=== PATIENT | female | born 1985 | race Two or more races ===

== ENCOUNTER 2025-03-18 00:54 | Emergency (ER) | payer MEDICAID, SELFPAY ==
[2025-03-18 00:55] VITALS: BMI 31.8
[2025-03-18 00:56] VITALS: BP 134/79; PULSE 79; RESP 18; TEMP 36.6; O2SAT 97
--- NOTE | 2025-03-18 01:12 | PD.EDABDPN ---
ED Abdominal Pain RME/HPI General Chief Complaint: Abdominal Pain Stated complaint: ABD PAIN, SOB Time seen by provider: 03/18/25 01:09 Arrival date/time: 03/18/25 00:54 40F with no significant PMH presents to ED with several months of intermittent burning/sharp epigastric pain and N/V. Patient has been taking TUMs and MoM w/ only minimal relief. Tonight was worse than usual, though patient is feeling better compared to initial onset. Patient also has some SOB associated with it and wants XR. Limitations: no limitations Related Data Home Medications ?Medication ?Instructions ?Recorded ?Confirmed vit no.95-ferrous 1 tab PO QDAY 06/18/18 06/19/18 fumarate 28 mg-folic acid 800 mcg tablet () Previous Rx's ?Medication ?Instructions ?Recorded ibuprofen 600 mg tablet 600 mg PO QID PRN pain #20 tabs 10/22/23 tramadol 50 mg tablet 50 mg PO Q6H PRN pain #20 tabs 10/22/23 Allergies Allergy/AdvReac Type Severity Reaction Status Date / Time No Known Allergies Allergy Verified 03/18/25 00:57 Review of Systems Review of Systems Systems Reviewed: All systems reviewed, normal except as documented Constitutional Constitutional: Reports system reviewed and no additional complaints, except as documented, Denies fever(s) and Denies headache(s) ENT Ears, Nose, Mouth, and Throat: Denies disequilibrium and Denies headache(s) Cardiovascular Cardiovascular: Reports system reviewed and no additional complaints, except as documented, Denies chest pain and Denies dyspnea Respiratory Respiratory: Reports system reviewed and no additional complaints, except as documented, Denies cough and Denies dyspnea Gastrointestinal Gastrointestinal: Reports system reviewed and no additional complaints, except as documented, Reports as per HPI, Reports abdominal pain, Reports nausea and Reports vomiting Neurologic Neurologic: Reports system reviewed and no additional complaints, except as documented, Denies confusion, Denies disequilibrium and Denies headache(s) Psychiatric Psychiatric: Denies confusion Past Medical History Past Medical History NEUROLOGIC: Negative Neurological Disorders CARDIAC: Negative Cardiac Disorders or Congestive Heart Failure RESPIRATORY: Negative Chronic Obstructive Pulmonary Disease (COPD) GASTROINTESTINAL: Negative Gastrointestinal Disorders GENITOURINARY: Positive Genitourinary Disorders (Kidney infection hospitalized for 4 days); Negative Renal Disease REPRODUCTIVE: Positive Previous Pregnancies (x5) MUSCULOSKELETAL: Negative Musculoskeletal Disorders ENDOCRINE: Negative Endocrine Disorders, Diabetes Mellitus Type 1 or Diabetes Mellitus Type 2 HEMATOLOGIC: Negative Blood Disorders OTHER HISTORY: Positive Hospitalization (5 vaginal deliveries) and Chicken Pox (as child); Negative Autoimmune Disease Family History FAMILY HISTORY: Positive Family Respiratory Disorders (mother-asthma), Family Cardiac Disorders (mother-HTN) and Family Cancer (mother-breast cancer); Negative Family Psychiatric Problems, Family Gastrointestinal Problems, Family Surgery or Family Anesthesia Reaction Surgical History SURGICAL: Negative Section Social History SMOKING STATUS: Never smoker SECOND HAND EXPOSURE: No ED Exam General Limitations: Present no limitations General appearance: Present alert and in no apparent distress Head Head exam: Present atraumatic Eye Eye exam: Present normal appearance, PERRL and EOMI ENT ENT exam: Present normal exam, normal oropharynx and mucous membranes moist Neck Neck exam: Present normal inspection, full ROM and trachea midline Chest Chest inspection: Present normal inspection and symmetric chest wall rise Respiratory Respiratory exam: Present normal lung sounds bilaterally Cardiovascular Cardiovascular exam: Present regular rate, normal rhythm and normal heart sounds Abdominal Exam Abdominal exam: Present soft and normal bowel sounds Abdominal tenderness: Present epigastrium and mild Extremities Exam Extremities exam: Present normal inspection and full ROM Back Exam Back exam: Present normal inspection and full ROM Neurological Exam Neurological exam: Present alert, oriented X3 and CN II-XII intact Psychiatric Psychiatric exam: Present normal affect and normal mood Skin Skin exam: Present warm, dry, intact and normal color Course Quality Measures none Orders Category Date Time Status XR chest 1V portable Stat Exams 03/18/25 01:44 Taken Famotidine [Pepcid] Med 03/18/25 01:09 Discontinued 40 mg PO X1 ONE Ondansetron Odt [Zofran Odt] Med 03/18/25 01:09 Discontinued 4 mg PO X1 ONE mg Hyd/Al Hyd/Carmen Susp [Maalox Susp] Med 03/18/25 01:09 Discontinued 30 ml PO X1 ONE Vital Signs Vital signs: Vital Signs Temperature 98 F 03/18/25 00:56 Pulse Rate 79 03/18/25 00:56 Respiratory Rate 18 03/18/25 00:56 Blood Pressure 134/79 H 03/18/25 00:56 Pulse Oximetry (%) 97 03/18/25 00:56 Oxygen Delivery Method Room Air 03/18/25 00:56 O2 at 97% on RA and WNLs Abdominal Pain MDM MDM Narrative MDM Narrative:: 40F with no significant PMH presents to ED with several months of intermittent burning/sharp epigastric pain and N/V. Patient has been taking TUMs and MoM w/ only minimal relief. Tonight was worse than usual, though patient is feeling better compared to initial onset. Patient also has some SOB associated with it and wants XR. Physical exam reveals mild epigastric tenderness. Normal WOB. Patient is afebrile, calm, and alert. GI cocktail improved symptoms. Telerad CXR read unremarkable. [employer] given. Patient data External records reviewed:: [facility] previous records Clinical information provided by:: patient Social determinants that could affect healthcare access:: none Patient has the following chronic illnesses:: none How is presenting disease/condition affected by chronic disease/condition?: no chronic disease Evaluation data The following diagnostics were reviewed and interpreted by me:: other (specify) (none) Lab and/or radiology exams considered but not ordered:: not ordered Interpretation Summary: n/a Medications / Prescriptions Medications or Prescriptions considered but not ordered:: ordered Medication administrations:: Medication Administration History Discontinued Medications Al Hydrox/Mg Hydrox/Simethicone (Mg Hyd/Al Hyd/Carmen (Maalox Reg) Susp 30 Ml Udc) 30 ml PO X1 ONE Stop: 03/18/25 01:10 Last Admin: 03/18/25 01:22 Dose: 30 ml Documented By: ALISA Famotidine (Famotidine 20 Mg Tablet) 40 mg PO X1 ONE Stop: 03/18/25 01:10 Last Admin: 03/18/25 01:22 Dose: 40 mg Documented By: ALISA Ondansetron HCl (Ondansetron Odt 4 Mg Tabrap) 4 mg PO X1 ONE; Protocol Stop: 03/18/25 01:10 Last Admin: 03/18/25 01:22 Dose: 4 mg Documented By: ALISA above Consultations Consultation(s) initiated? (list below): No Diagnosis Differential diagnosis abdominal pain: abdominal pain, acute appendicitis, calculus of kidney, constipation, diverticulitis, endometriosis, gastroenteritis, pancreatitis, small bowel obstruction and other (gastritis, GERD) Most likely diagnosis given after review of the tests above:: gastritis Admission Indicated Admission indicated?: not indicated Admission Request Was there a request for admission?: No Disposition Plan Disposition Plan: Discharge Discharge Attestation Discharge Attestation: The patient and all family members were given an opportunity to ask questions and understood the discharge instructions. Discharge instructions specifically effects, indications for sooner follow up or return to the emergency department, and the expected course of current diagnosis. Patient condition: Stable Discharge Plan Plan Patient Disposition: HOME (Self Care) Discharge Disposition comment: Stable Prescriptions/Referrals Prescriptions/Med Rec: No Action PNV no.95-ferrous fumarate-FA [] 28 mg iron- 800 mcg Tablet 1 tab PO QDAY tramadol 50 mg tablet 50 mg PO Q6H PRN (Reason: pain) Qty: 20 0RF ibuprofen 600 mg tablet 600 mg PO QID PRN (Reason: pain) Qty: 20 0RF Referrals: Cely Harding PA-C [Primary Care Provider] - In 1 week Problem List Clinical Impression: Gastritis Patient/Caregiver Discharge Instructions Education Materials: ED Gastritis (Adult) Additional Instructions: Please follow-up with PCP within 24-48 hours and return immediately if symptoms worsen. Can try Pepcid and/or see PCP for additional evaluation including possible referral to GI. Print Language: Moroccan Stand Alone Forms: Work/School Release, Patient Portal Info Letter JANETTE/LIANNA Supervising Physician LEIDA Supervising Physician: Dr. Diaz
[2025-03-18] MEDS: MG HYD/AL HYD/SIME (Maalox Reg) SUSP 30 ML UDC PO (01:22)
[2025-03-18] MEDS: FAMOTIDINE 20 MG TABLET 40 MG PO (01:22)
[2025-03-18] MEDS: ONDANSETRON ODT 4 MG TABRAP PO (01:22)
--- NOTE | 2025-03-18 01:44 | XR_ITS ---
Examination: PA chest single view TECHNIQUE: Upright PA chest single view Date and time: March 18, 2025, 0148 hours INDICATIONS: Epigastric pain nausea vomiting with shortness of breath tonight FINDINGS: Normal heart size The lungs are clear. The osseous structures are intact Impression : No active disease
--- NOTE | 2025-03-18 02:32 | PRELIM_ITS ---
Radiograph of the chest (single PA Upright view). March 18, 2025 0147 hours Clinical history: Shortness of breath No prior study is available for comparison. Findings: The heart, mediastinum and pulmonary jorge are unremarkable. The lungs are clear. There is no pleural effusion. The bony thorax is unremarkable. Impression: No acute cardiopulmonary process. Report Electronically Signed By: Aniket Wang 03/18/2025 2:32:19 AM [EST]
== END 2025-03-18 03:36 | disposition home or self-care (01) ==
PROVIDERS: Emergency Provider Emergency Medicine; PCP Physician Assistant
DX: K29.70 Gastritis, unspecified, without bleeding (principal); R06.02 Shortness of breath
CPT/HCPCS: 71045; 99283; Q0162; A9270

== ENCOUNTER 2025-04-16 08:10 | Emergency (ER) | payer MEDICAID, SELFPAY ==
[2025-04-16] VITALS (7 sets, daily range): BP systolic 111–161; BP diastolic 52–92; PULSE 54–87; RESP 17–18; TEMP 36.6–36.9; O2SAT 98–100; BMI 32.8
--- NOTE | 2025-04-16 | XR_ITS ---
MRI abdomen, without contrast. MRCP Date and time of exam: April 16, 2025, 1447 hrs. Indications: Abdominal pain today, gallbladder sonogram today 3 mm stone in the common bile duct Technique: .5T MRI scanner. Images obtained included T1 weighted transverse images, T2-weighted transverse images, T2-weighted transverse images fat-suppressed, T2 weighted haste fat suppressed transverse images, T1 weighted images, in and out of phase images, T2-weighted coronal images, breath hold, T2 weighted haze coronal images as well as T2 weighted coronal thick slab images, MRCP. Findings: No focal liver or splenic lesion No intrahepatic biliary tract dilatation Gallstones, no definite gallbladder wall thickening 2 mm filling defect in the common bile duct axial image 20 and system with common bile duct stone Negative for pancreatitis Spleen not enlarged No ascites Impression: 2 mm stone in the common bile duct, consider ERCP follow-up
--- NOTE | 2025-04-16 08:36 | XR_ITS ---
Examination: CT abdomen and pelvis without contrast. Coronal 3-D reconstructions. Sagittal 2-D reconstructions. Date and time of exam:April 16, 2025, 0924 hours INDICATIONS: Abdominal pain epigastric pain nausea vomiting beginning today. CTDI: vol (mGy): 12.1 DLP: (mGycm): 712 Technique: Axial images of the abdomen have been obtained, 3 mm slice thickness Intravenous contrast material has not been administered. Low dose protocols were performed. One or more of the following dose reduction techniques were used; automated exposure control, adjustment of the mA and/or KV according to patient size, use of iterative reconstruction technique. Findings: No focal liver or splenic lesions Cholelithiasis No pancreatic or adrenal mass Bilateral 1 to 3 mm renal calculi, no hydronephrosis or ureteral calculi Aorta normal size. Normal appendix. No bowel obstruction. No diverticulitis Anteverted uterus Contracted urinary bladder Osseous structures intact IMPRESSION: Cholelithiasis, negative for cholecystitis Nonobstructing bilateral renal calculi, no hydronephrosis or ureteral calculi Normal appendix No bladder mass or bladder calculi
--- NOTE | 2025-04-16 08:36 | XR_ITS ---
Examination: Abdomen sonogram, Limited Date and time of exam: April 16, 2025, 0945 hours INDICATIONS: Mid abdominal pain beginning today Technique: Real-time clemente scale transabdominal sonographic images of the upper abdomen obtained. Findings: Multiple gallstones Normal gallbladder wall. Common bile duct enlarged 0.7 cm with 3 mm stone in the common bile duct Pancreatic head 2.1 cm Liver 14.8 cm irregular contour fatty infiltration no focal liver lesions. Normal hepatopedal portal venous flow Patent IVC IMPRESSION: Cholelithiasis Recommend MRCP follow-up to confirm 3 mm stone in the enlarged common bile duct
--- NOTE | 2025-04-16 08:44 | PD.EDRME ---
Rapid Medical Screening Exam [facility] Arrival date/time: 04/16/25 08:10 40-year-old female with no known medical history presents to the emergency room with a chief complaint of 10 out of 10 epigastric pain that radiates to her whole abdomen. The patient has also had nausea and vomiting. I have greeted and performed a focused initial assessment of this patient. A comprehensive ED assessment and evaluation of the patient, analysis of all test results, and completion of the medical decision making process will be conducted by additional ED providers. Chief Complaint: Abdominal Pain Time Seen by Provider: 04/16/25 08:30 Vital signs: Vital Signs Temperature 98.5 F 04/16/25 08:43 Pulse Rate 87 04/16/25 08:43 Respiratory Rate 18 04/16/25 08:43 Blood Pressure 148/82 H 04/16/25 08:43 Pulse Oximetry (%) 98 04/16/25 08:43 Oxygen Delivery Method Room Air 04/16/25 08:43 Vital signs reviewed by provider: Yes
[2025-04-16 08:57] LABS: Basophils # (Auto) 0.1 Thou/mm3 (0.0-0.2); Basophils % (Auto) 1 % (0-2.5); Eosinophils # (Auto) 0.1 Thou/mm3 (0.0-0.5); Eosinophils % (Auto) 1 % (0-10); Hematocrit 40.0 % (36.0-46.0); Hemoglobin 13.3 g/dL (12.0-16.0); Immature Granulocytes Auto 0.02 Thou/mm3 (0.00-0.00); Lymphocytes # (Auto) 1.6 Thou/mm3 (1.0-4.8); Lymphocytes % (Auto) 17 % (10-50); Mean Corpuscular HGB Conc 33.3 g/dl (31.0-37.0); Mean Corpuscular Hemoglobin 28.1 pg (25.0-35.0); Mean Corpuscular Volume 85 fL (80-100); Monocytes # (Auto) 0.7 Thou/mm3 (0.0-0.8); Monocytes % (Auto) 7 % (0-12); Neutrophils # (Auto) 7.1 Thou/mm3 (1.8-7.7); Neutrophils % (Auto) 75 % (37-80); Nucleated Red Blood Cell # 0.00 Thou/mm3 (0.00-0.00); Nucleated Red Blood Cell % 0 /100 WBC (0); Platelet Count 366 Thou/mm3 (140-440); RDW Standard Deviation 37.2 fL (36.4-46.3); Red Blood Count 4.73 Miln/mm3 (4.00-5.20); White Blood Count 9.4 Thou/mm3 (3.6-11.0)
[2025-04-16] MEDS: MG HYD/AL HYD/SIME (Maalox Reg) SUSP 30 ML UDC PO (09:00)
[2025-04-16] MEDS: ONDANSETRON ODT 4 MG TABRAP PO (09:00)
[2025-04-16] MEDS: HYDROcodone/APAP 5/325 TABLET 1 TAB PO (09:00)
--- NOTE | 2025-04-16 09:04 | PD.EDABDPN ---
ED Abdominal Pain RME/HPI General Chief Complaint: Abdominal Pain Stated complaint: EPIGASTRIC PAIN TODAY AT 0100, HX GASTRITIS Time seen by provider: 04/16/25 08:30 Arrival date/time: 04/16/25 08:10 Source: patient Mode of arrival: ambulatory Limitations: no limitations RME / HPI RME / HPI narrative: 04/16/25 08:10 40-year-old female with no known medical history presents to the emergency room with a chief complaint of 10 out of 10 epigastric pain that radiates to her whole abdomen. The patient has also had nausea and vomiting. I have greeted and performed a focused initial assessment of this patient. A comprehensive ED assessment and evaluation of the patient, analysis of all test results, and completion of the medical decision making process will be conducted by additional ED providers. MD complaint: abdominal pain Onset (ago): day(s) Consistency: constant Severity: moderate Severity scale (1-10): 6 Quality: burning Radiation: epigastric Migration to: no migration Relieving factors: nothing Exacerbating factors: nothing Associated symptoms: nausea and vomiting Related Data Home Medications ?Medication ?Instructions ?Recorded ?Confirmed vit no.95-ferrous 1 tab PO QDAY 06/18/18 06/19/18 fumarate 28 mg-folic acid 800 mcg tablet () Previous Rx's ?Medication ?Instructions ?Recorded ibuprofen 600 mg tablet 600 mg PO QID PRN pain #20 tabs 10/22/23 tramadol 50 mg tablet 50 mg PO Q6H PRN pain #20 tabs 10/22/23 Allergies Allergy/AdvReac Type Severity Reaction Status Date / Time No Known Allergies Allergy Verified 04/16/25 08:13 Review of Systems Review of Systems Systems Reviewed: All systems reviewed, normal except as documented Past Medical History Past Medical History GENITOURINARY: Positive Genitourinary Disorders REPRODUCTIVE: Positive Previous Pregnancies OTHER HISTORY: Positive Hospitalization and Chicken Pox Family History FAMILY HISTORY: Positive Family Respiratory Disorders, Family Cardiac Disorders and Family Cancer Surgical History SURGICAL: Negative Section Social History SMOKING STATUS: Never smoker SECOND HAND EXPOSURE: No ED Exam General Limitations: Present no limitations General appearance: Present alert and other (appears to be in pain ) Head Head exam: Present atraumatic, normocephalic and normal inspection Eye Eye exam: Present normal appearance, PERRL and EOMI ENT ENT exam: Present normal exam, normal oropharynx and mucous membranes moist Neck Neck exam: Present normal inspection, full ROM and trachea midline Chest Chest inspection: Present normal inspection and symmetric chest wall rise Respiratory Respiratory exam: Present normal lung sounds bilaterally Cardiovascular Cardiovascular exam: Present regular rate, normal rhythm and normal heart sounds Abdominal Exam Abdominal exam: Present soft, tenderness (mid epigastric tenderness 2+, no rebound, no percussion tenderness ) and normal bowel sounds Extremities Exam Extremities exam: Present normal inspection and full ROM Back Exam Back exam: Present normal inspection and full ROM Neurological Exam Neurological exam: Present alert, oriented X3 and CN II-XII intact Psychiatric Psychiatric exam: Present normal affect and normal mood Skin Skin exam: Present warm, dry, intact and normal color Course Quality Measures none Orders Category Date Time Status Urogynaecologist NOW Care 04/16/25 09:06 Active Continuous Pulse Oximetry NOW Care 04/16/25 09:06 Completed EKG (ED ONLY) *Do not use* NOW Care 04/16/25 09:06 Completed Insert IV NOW Care 04/16/25 09:06 Active MRI Screening NOW Care 04/16/25 12:06 Active Transfer to another facility [Transfer/Discharge] Stat Discharge 04/16/25 17:[address] abdomen pelvis wo con Stat Exams 04/16/25 08:36 Completed EKG (ED Only) Stat Exams 04/16/25 09:06 Draft MR MRCP Stat Exams 04/16/25 Completed US gall bladder Stat Exams 04/16/25 08:36 Completed XR chest 1V portable Stat Exams 04/16/25 09:06 Completed CBC Stat Lab 04/16/25 08:50 Completed CMP [Comprehensive Metabolic Panel] Stat Lab 04/16/25 08:50 Completed HCG Qualitative,Urine Stat Lab 04/16/25 08:03 Completed Lipase Stat Lab 04/16/25 08:50 Completed Liver Panel Stat Lab 04/16/25 17:22 Received UA [Urinalysis] Stat Lab 04/16/25 08:03 Completed Urinalysis Stat Lab 04/16/25 09:06 Ordered Urine Culture Stat Lab 04/16/25 08:03 Received Famotidine Inj [Pepcid Inj] Med 04/16/25 09:07 Discontinued 20 mg IVP X1 ONE HYDROcodone*/APAP 5/325 [[place] 5/325] Med 04/16/25 08:36 Discontinued 1 tab PO X1 ONE Ondansetron Inj [Zofran Inj] Med 04/16/25 09:07 Discontinued 4 mg IVP X1 ONE Ondansetron Odt [Zofran Odt] Med 04/16/25 08:36 Discontinued 4 mg PO X1 ONE Pantoprazole Inj [Protonix Inj] Med 04/16/25 09:31 Discontinued 40 mg IVP X1 ONE Sodium Chloride 0.9% 1000 ml [Ns] 1,000 ml Med 04/16/25 09:06 Discontinued IV 999 mls/hr mg Hyd/Al Hyd/Carmen Susp [Maalox Susp] Med 04/16/25 08:36 Discontinued 30 ml PO X1 ONE Vital Signs Vital signs: Vital Signs Temperature 98.5 F 04/16/25 08:43 Pulse Rate 87 04/16/25 08:43 Respiratory Rate 18 04/16/25 08:43 Blood Pressure 148/82 H 04/16/25 08:43 Pulse Oximetry (%) 98 04/16/25 08:43 Oxygen Delivery Method Room Air 04/16/25 08:43 Pulse ox is 98% on room air which is adequate. Abdominal Pain MDM MDM Narrative MDM Narrative:: 1700: Spoke with transfer nurse, aware of MRCP results and plan to transfer for ERCP. 1800: Patient signed out to Dr. Kimball pending transfer for ERCP. Patient data External records reviewed:: [facility] previous records (I reviewed ED visit on 03/18/2025 ) Clinical information provided by:: patient Social determinants that could affect healthcare access:: none Patient has the following chronic illnesses:: None reported How is presenting disease/condition affected by chronic disease/condition?: no chronic disease Evaluation data The following diagnostics were reviewed and interpreted by me:: lab results, radiology exam(s) and EKG tracing(s) (04/16/2025 @ 10:06 AM. NSR, rate 60, no acute changes. ) Lab and/or radiology exams considered but not ordered:: None Interpretation Summary: Ordering Physician: Helio Ruano Date of Service: 04/16/25 Procedure(s): CT abdomen pelvis wo con Accession Number(s): [id number] cc: Cely Harding; Helio Ruano; Dani Vizcaino MD~ Examination: CT abdomen and pelvis without contrast. Coronal 3-D reconstructions. Sagittal 2-D reconstructions. Date and time of exam:April 16, 2025, 0924 hours INDICATIONS: Abdominal pain epigastric pain nausea vomiting beginning today. CTDI: vol (mGy): 12.1 DLP: (mGycm): 712 Technique: Axial images of the abdomen have been obtained, 3 mm slice thickness Intravenous contrast material has not been administered. Low dose protocols were performed. One or more of the following dose reduction techniques were used; automated exposure control, adjustment of the mA and/or KV according to patient size, use of iterative reconstruction technique. Findings: No focal liver or splenic lesions Cholelithiasis No pancreatic or adrenal mass Bilateral 1 to 3 mm renal calculi, no hydronephrosis or ureteral calculi Aorta normal size. Normal appendix. No bowel obstruction. No diverticulitis Anteverted uterus Contracted urinary bladder Osseous structures intact IMPRESSION: Cholelithiasis, negative for cholecystitis Nonobstructing bilateral renal calculi, no hydronephrosis or ureteral calculi Normal appendix No bladder mass or bladder calculi Dictated By: Dani Vizcaino MD Signed By: <Electronically signed by Dani Vizcaino MD in OV> 04/16/25 0949 Ordering Physician: Helio Ruano Date of Service: 04/16/25 Procedure(s): US gall bladder Accession Number(s): [id number] cc: Cely Harding; Helio Ruano; Dani Vizcaino MD~ Examination: Abdomen sonogram, Limited Date and time of exam: April 16, 2025, 0945 hours INDICATIONS: Mid abdominal pain beginning today Technique: Real-time clemente scale transabdominal sonographic images of the upper abdomen obtained. Findings: Multiple gallstones Normal gallbladder wall. Common bile duct enlarged 0.7 cm with 3 mm stone in the common bile duct Pancreatic head 2.1 cm Liver 14.8 cm irregular contour fatty infiltration no focal liver lesions. Normal hepatopedal portal venous flow Patent IVC IMPRESSION: Cholelithiasis Recommend MRCP follow-up to confirm 3 mm stone in the enlarged common bile duct Dictated By: Dani Vizcaino MD Signed By: <Electronically signed by Dani Vizcaino MD in OV> 04/16/25 1034 Ordering Physician: Jh Ferrer MD Date of Service: 04/16/25 Procedure(s): XR chest 1V portable Accession Number(s): [id number] cc: Cely Harding; Jh Ferrer MD; Dani Vizcaino MD~ Examination: AP chest single view Technique one AP portable upright chest single view Date and time: April 16, 2025, 0920 hours INDICATIONS: Coughing chest pain beginning today. FINDINGS: Normal heart size The lungs are clear. The osseous structures are intact IMPRESSION: No active disease Dictated By: Dani Vizcaino MD Signed By: <Electronically signed by Dani Vizcaino MD in OV> 04/16/25 0943 Ordering Physician: Jh Ferrer MD Date of Service: 04/16/25 Procedure(s): MR MRCP Accession Number(s): [id number] cc: Cely Harding; Jh Ferrer MD; Dani Vizcaino MD~ MRI abdomen, without contrast. MRCP Date and time of exam: April 16, 2025, 1447 hrs. Indications: Abdominal pain today, gallbladder sonogram today 3 mm stone in the common bile duct Technique: .5T MRI scanner. Images obtained included T1 weighted transverse images, T2-weighted transverse images, T2-weighted transverse images fat-suppressed, T2 weighted haste fat suppressed transverse images, T1 weighted images, in and out of phase images, T2-weighted coronal images, breath hold, T2 weighted haze coronal images as well as T2 weighted coronal thick slab images, MRCP. Findings: No focal liver or splenic lesion No intrahepatic biliary tract dilatation Gallstones, no definite gallbladder wall thickening 2 mm filling defect in the common bile duct axial image 20 and system with common bile duct stone Negative for pancreatitis Spleen not enlarged No ascites Impression: 2 mm stone in the common bile duct, consider ERCP follow-up Dictated By: Dani Vizcaino MD Signed By: <Electronically signed by Dani Vizcaino MD in OV> 04/16/25 1614 Medications / Prescriptions Medications or Prescriptions considered but not ordered:: None Medication administrations:: Medication Administration History Discontinued Medications Hydrocodone Bitart/Acetaminophen (Hydrocodone/Apap 5/325 Tablet) 1 tab PO X1 ONE Stop: 04/16/25 08:37 Last Admin: 04/16/25 09:00 Dose: 1 tab Documented By: EF Al Hydrox/Mg Hydrox/Simethicone (Mg Hyd/Al Hyd/Carmen (Maalox Reg) Susp 30 Ml Udc) 30 ml PO X1 ONE Stop: 04/16/25 08:37 Last Admin: 04/16/25 09:00 Dose: 30 ml Documented By: EF Famotidine (Famotidine Inj 10 Mg/Ml Vial 2 Ml) 20 mg IVP X1 ONE Stop: 04/16/25 09:08 Last Admin: 04/16/25 09:20 Dose: 20 mg Documented By: EF Sodium Chloride (Ns) 1,000 mls @ 999 mls/hr IV .Q1H1M ONE Stop: 04/16/25 10:06 Last Infusion: 04/16/25 10:20 Dose: Infused Documented By: Admin: 04/16/25 09:19 Dose: 999 mls/hr Documented By: EF Ondansetron HCl (Ondansetron Odt 4 Mg Tabrap) 4 mg PO X1 ONE; Protocol Stop: 04/16/25 08:37 Last Admin: 04/16/25 09:00 Dose: 4 mg Documented By: EF Ondansetron HCl (Ondansetron Inj 2 Mg/Ml Inj 2 Ml) 4 mg IVP X1 ONE; Protocol Stop: 04/16/25 09:08 Last Admin: 04/16/25 11:22 Dose: Not Given Documented By: EF Non-Admin Reason: Cancelled by Provider Pantoprazole Sodium (Pantoprazole Inj 40 Mg Vial) 40 mg IVP X1 ONE Stop: 04/16/25 09:32 Last Admin: 04/16/25 09:40 Dose: 40 mg Documented By: EF See above Consultations Consultation(s) initiated? (list below): Yes Consultation #1 (Physician, Specialty, Details): SEE MDM Diagnosis Differential diagnosis abdominal pain: abdominal pain, calculus of kidney, diverticulitis and gastroenteritis Most likely diagnosis given after review of the tests above:: CBD stone Abdominal pain Admission Indicated Admission indicated?: not indicated Explain why admission is indicated or not indicated:: txfer for ERCP Admission Request Was there a request for admission?: No Disposition Plan Disposition Plan: other (specify) (signed out to Dr. Kimball pending txfer for ERCP) Critical Care Time Critical Care Time Critical Care Time: No Discharge Plan Plan Patient Disposition: Xfer Acute Care Fac Service Needed for Transfer: Gastroenterology Prescriptions/Referrals Prescriptions/Med Rec: No Action PNV no.95-ferrous fumarate-FA [] 28 mg iron- 800 mcg Tablet 1 tab PO QDAY tramadol 50 mg tablet 50 mg PO Q6H PRN (Reason: pain) Qty: 20 0RF ibuprofen 600 mg tablet 600 mg PO QID PRN (Reason: pain) Qty: 20 0RF Referrals: Cely Harding PA-C [Primary Care Provider] - In 1 week Problem List Clinical Impression: Common bile duct stone, Abdominal pain Patient/Caregiver Discharge Instructions Print Language: Indonesian Stand Alone Forms: Berenice Award Info., Patient Portal Info Letter
--- NOTE | 2025-04-16 09:06 | EKG_ITS ---
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
[2025-04-16 09:09] LABS: Collection Type, Urine Clean Catch
[2025-04-16 09:13] LABS: Alanine Aminotransferase 205 U/L (10-49); Albumin, Serum 4.6 gm/dL (3.5-5.0); Albumin/Globulin Ratio 1.8 (1.2-2.2); Alkaline Phosphatase 117 U/L (46-116); Anion Gap 14 (7-16); Aspartate Amino Transferase 430 U/L (0-34); BUN/Creatinine Ratio 13 Ratio (12-20); Bilirubin,Total 1.9 mg/dL (0.3-1.2); Blood Urea Nitrogen 9 mg/dL (9-23); Calcium 10.1 mg/dL (8.3-10.6); Calcium (Corrected) 10.1 mg/dL (8.5-10.1); Carbon Dioxide 23.9 mMol/L (20.0-31.0); Chloride 105 mMol/L (98-107); Creatinine (Component) 0.7 mg/dL (0.6-1.3); Estimated Creatinine Clearance 109.6 mL/min (>60); Globulin 2.6 gm/dL (2.3-3.5); Glucose 139 mg/dL (74-106); Lipase 43 U/L (12-53); Osmolality,Calculated 285 (275-295); Potassium 3.7 mMol/L (3.4-5.1); Sodium 143 mMol/L (136-145); Total Protein 7.2 gm/dL (5.7-8.2); eGFR > 60 See Note
[2025-04-16 09:18] LABS: HCG Qualitative,Urine Negative
[2025-04-16] MEDS: SODIUM CHLORIDE 0.9% 1000 ML 1,000 ML 999 ML IV (09:19)
[2025-04-16] MEDS: FAMOTIDINE INJ 10 MG/ML VIAL 2 ML 20 MG IVP (09:20)
[2025-04-16 09:26] LABS: Bacteria,Urine Rare; Bilirubin,Urine Negative (Negative); Blood,Urine Negative (Negative); Clarity,Urine Clear (Clear/Hazy); Color,Urine Yellow (Lt Yel-Yel); Glucose, Urine Negative (Negative); Ketones,Urine 1+ (Negative); Leukocyte Esterase,Urine Negative (Negative); Nitrite,Urine Negative (Negative); PH,Urine 8.5 (5.0-7.0); Protein,Urine 1+ (Neg - Trace); RBC,Urine 7 /hpf (0-3); Specific Gravity,Urine 1.026 (1.001-1.035); Squamous Epithelial Cell,Urine 4 /hpf (0-5); Urobilinogen,Urine 2.0 mg/dL (0.0-1.0); WBC,Urine 1 /hpf (0-5)
--- NOTE | 2025-04-16 17:48 | PC.NURSE ---
SPOKE WITH ROBERTO FROM [facility]. PER ROBERTO THEIR GI DOCTOR COMES IN AT 1800. SHE WILL INFORM THE NEXT SHIFT ABOUT THE CASE AND WILL HAVE THEM CONTACT USE AFTER THEY REVIEW IT.
[2025-04-16 18:17] LABS: Alanine Aminotransferase 301 U/L (10-49); Albumin, Serum 4.0 gm/dL (3.5-5.0); Alkaline Phosphatase 113 U/L (46-116); Aspartate Amino Transferase 425 U/L (0-34); Bilirubin,Direct 0.6 mg/dL (0.0-0.3); Bilirubin,Total 1.5 mg/dL (0.3-1.2); Total Protein 6.3 gm/dL (5.7-8.2)
--- NOTE | 2025-04-16 18:21 | EDNOTE_ITS ---
Emergency Room Addendum Addendum Narrative: 1800: Care assumed from Dr. Ferrer (emergency physician). Past medical, surgical, social and family history reviewed. Vitals and home medications reviewed. Results and treatment plan discussed. I will assume the care of the patient at this time and will follow the patient, pending transfer for MRCP. The following addendum documentation note is intended to reflect any pending information, findings, or radiology results not included in the patient?s ini tial chart by the previous shift scribe. 1823: [facility] accepted patient for transfer. ED to ED. 2008: EMS transported patient to [facility] ED.
--- NOTE | 2025-04-16 19:06 | PC.NURSE ---
report called to david raymundo via telephone from flori
== END 2025-04-16 20:48 | disposition short-term general hospital (02) ==
PROVIDERS: Nurse Practitioner Family; Surgery; Emergency Provider Family Medicine; PCP Physician Assistant
DX: K80.70 Calculus of gallbladder and bile duct without cholecystitis without obstruction (principal); N20.0 Calculus of kidney; R05.9 Cough, unspecified; R07.9 Chest pain, unspecified; Z75.1 Person awaiting admission to adequate facility elsewhere
CPT/HCPCS: 36415; 71045; 74176; 74181; 76705; 80053; 80076; 81001; 81025; 83690; 85025; 87086; 93005; 96361; 96374; 96375; 99283; J2470; J3490; J7030; Q0162; A9270

== ENCOUNTER 2025-05-21 05:50 | Day surgery (SDC) | payer MEDICAID, SELFPAY ==
[2025-05-19 11:16] VITALS: BMI 36.1
[2025-05-19 11:58] LABS: Basophils # (Auto) 0.0 Thou/mm3 (0.0-0.2); Basophils % (Auto) 1 % (0-2.5); Eosinophils # (Auto) 0.1 Thou/mm3 (0.0-0.5); Eosinophils % (Auto) 1 % (0-10); Hematocrit 39.1 % (36.0-46.0); Hemoglobin 12.8 g/dL (12.0-16.0); Immature Granulocytes Auto 0.02 Thou/mm3 (0.00-0.00); Lymphocytes # (Auto) 2.0 Thou/mm3 (1.0-4.8); Lymphocytes % (Auto) 26 % (10-50); Mean Corpuscular HGB Conc 32.7 g/dl (31.0-37.0); Mean Corpuscular Hemoglobin 28.3 pg (25.0-35.0); Mean Corpuscular Volume 87 fL (80-100); Monocytes # (Auto) 0.5 Thou/mm3 (0.0-0.8); Monocytes % (Auto) 7 % (0-12); Neutrophils # (Auto) 5.0 Thou/mm3 (1.8-7.7); Neutrophils % (Auto) 65 % (37-80); Nucleated Red Blood Cell # 0.00 Thou/mm3 (0.00-0.00); Nucleated Red Blood Cell % 0 /100 WBC (0); Platelet Count 347 Thou/mm3 (140-440); RDW Standard Deviation 39.0 fL (36.4-46.3); Red Blood Count 4.52 Miln/mm3 (4.00-5.20); White Blood Count 7.7 Thou/mm3 (3.6-11.0)
[2025-05-19 12:15] LABS: Alanine Aminotransferase 15 U/L (10-49); Albumin, Serum 4.6 gm/dL (3.5-5.0); Albumin/Globulin Ratio 1.8 (1.2-2.2); Alkaline Phosphatase 92 U/L (46-116); Aspartate Amino Transferase 18 U/L (0-34); BUN/Creatinine Ratio 13 Ratio (12-20); Bilirubin,Total 1.0 mg/dL (0.3-1.2); Blood Urea Nitrogen 9 mg/dL (9-23); Calcium 9.4 mg/dL (8.3-10.6); Calcium (Corrected) 9.4 mg/dL (8.5-10.1); Carbon Dioxide 26.2 mMol/L (20.0-31.0); Creatinine (Component) 0.7 mg/dL (0.6-1.3); Estimated Creatinine Clearance 115.4 mL/min (>60); Globulin 2.6 gm/dL (2.3-3.5); Glucose 102 mg/dL (74-106); Total Protein 7.2 gm/dL (5.7-8.2); eGFR > 60 See Note
[2025-05-19 12:16] LABS: HCG,Qualitative Serum Negative
[2025-05-19 12:18] LABS: INR 1.0 (0.9-1.3); Partial Thromboplastin Time 27.8 Seconds (22.0-36.0); Prothrombin Time 10.8 Seconds (9.0-12.2)
[2025-05-19 13:00] LABS: Anion Gap 10 (7-16); Chloride 108 mMol/L (98-107); Osmolality,Calculated 285 (275-295); Potassium 3.9 mMol/L (3.4-5.1); Sodium 144 mMol/L (136-145)
[2025-05-21] VITALS (8 sets, daily range): BP systolic 118–139; BP diastolic 62–93; PULSE 71–92; RESP 15–22; TEMP 36.3–36.6; O2SAT 97–100; BMI 36.4
--- NOTE | 2025-05-21 07:21 | SUR.PREOP ---
Patient expressed gratitude for visit before their procedure.
--- NOTE | 2025-05-21 09:30 | SUR.PHASEI ---
pt received from OR in recovery bay 5. pt asleep but responds to voice, breathing unlabored on nc 6l. v/s stable. pt dressing to penis cdi. report received from Vikash RANKIN and Jerry ELLINGTON.
--- NOTE | 2025-05-21 09:38 | SUR.PHASEI ---
pt arrived to PACU via gurney with oral airway present, breathing unlabored, dressing to abdomen clean, dry, and intact, report from Ayanna ELLINGTON and Dr Queen
--- NOTE | 2025-05-21 09:57 | PD.SUROPNT ---
Date of Procedure 05/21/25 Pre Op Diagnosis Symptomatic cholelithiasis Post Op Diagnosis Same Procedure Laparoscopic cholecystectomy Findings Patient was found to have cholesterolosis of the anterior gallbladder but no stone was seen Procedure Description After endotracheal anesthesia was given the patient was placed in supine position and the abdomen was prepped with chloroprep solution and draped in a sterile manner. After time out was performed I injected a few cc of of half percent Marcaine with epinephrine below the umbilicus and I made an incision for about 3 cm in length. The fascia was cleaned and Veress needle was inserted to create a pneumoperitoneum up to 15 mmHg. Then introduced a 12 mm trocar and a 10 mm camera through the fascia and I inspected the intra-abdominal organs as well as the gallbladder and the liver. Another 5 mm trocar was inserted in the epigastric region under direct vision after injecting some local anesthesia. At this time the patient was kept in reverse Trendelenburg position with the left lateral tilt. The third 5 mm trocar was inserted over the mid axillary line under direct vision and a Abhilash and Donna grasper was used to hold the fundus of the gallbladder. The retraction was carried out by the insurance underwriting assistant moving the fundus of the gallbladder towards the right shoulder of the patient to create enough traction. I placed a another 5 mm trocar in the midaxillary line just lateral to the rectus muscle under direct vision. I used a fenestrated grasper to retract the neck of the gallbladder laterally towards the patient's right hip. The Calot's triangle was exposed and I achieved the critical view of safety as follows: I dissected out the fatty tissue from the hepatocystic triangle and cleared this area. I also dissected inferior and posterior to the gallbladder to identify the cystic duct and the gallbladder wall. Then superiorly I dissected along the cystic plate up to lower one third third of the gallbladder to lift the gallbladder from the liver. At this time I confirmed that only 2 structures entering the gallbladder were cystic artery and the cystic duct. The common duct was seen distally but no dissection was carried out around the duct. I did not see any need for operative cholangiogram in this patient. The cystic duct was clipped doubly and then divided and cystic artery was similarly dealt with. Then the gallbladder was removed from the liver bed using Harmonic gordo to control the small blood vessels as the dissection proceeded. Then the gallbladder was from the liver bed completely and delivered through the umbilical port using an Endopouch. The liver bed was coagulated with cautery to obtain satisfactory hemostasis. The trocars were pulled out from the abdominal cavity and the fascia at the umbilical incision was closed with interrupted 0 Ethibond. Subcutaneous tissues was closed with 3-0 chromic and injected a few cc of half percent Marcaine with epinephrine and the skin was closed with interrupted 4-0 nylon stitches at all the trocar sites. Dressing was applied with 2 x 2 and Tegaderm. Patient tolerated the procedure well and returned to recovery room in stable condition. Anesthesia GETA Pathology / specimen Other (Gallbladder) IVF Infused 700 Estimated Blood Loss 10 Surgeon Arianne Contreras MD Surgical Staff Operation Date: 05/21/25 08:00 Case Staff Anesthesiologist: Devendra Queen RN First Assistant: Margarita Cam
[2025-05-21] MEDS: ONDANSETRON INJ 2 MG/ML INJ 2 ML 4 MG IVP (10:08)
--- NOTE | 2025-05-21 10:30 | SUR.PHASEII ---
discharge instructions given with sister in law Sue present, all questions answered.
--- NOTE | 2025-05-21 10:53 | SUR.PHASEII ---
pt awake, alert, able to follow commands, breathing unlabored, dressing to abdomen clean, dry, and intact, pt able to dress with minimal assistance and ambulate to wheelchair with steady gait, pt discharged via wheelchair with all belongings and copies of discharge paperwork.
== END 2025-05-21 10:53 | disposition home or self-care (01) ==
PROVIDERS: Anesthesiology; PCP Physician Assistant; Referring Provider Surgery; Visit Provider Surgery
PROC: 0FT44ZZ Resection of Gallbladder, Percutaneous Endoscopic Approach (ICD-10-PCS; CPT 47562; principal; 2025-05-21 08:00)
DX: K80.20 Calculus of gallbladder without cholecystitis without obstruction (principal); E66.9 Obesity, unspecified; Z68.36 Body mass index [BMI] 36.0-36.9, adult
CPT/HCPCS: 47562; 36415; 80053; 84703; 85025; 85610; 85730; A4217; A4649; J0131; J1100; J1885; J2250; J2405; J2704; J3010; J3490; A9270